=== PATIENT | female | born 1950 | race Caucasian/White ===

== ENCOUNTER 2017-12-24 09:09 | Emergency (ER) | payer MEDICARE, MEDICAID ==
[~2017-12-24] VITALS: Ht 167.6 cm; Wt 50.0 kg
[~2017-12-24 09:09] MED LIST: ASPI-611 PO; PANT20TA2 PO
[2017-12-24 09:14] VITALS: BP 163/79
== END 2017-12-24 10:21 | disposition home or self-care (01) ==
LOC: ER 09:10
DX: S06.0X0A Concussion without loss of consciousness, initial encounter (principal); Z56.0 Unemployment, unspecified; Z79.82 Long term (current) use of aspirin; Z79.899 Other long term (current) drug therapy; X58.XXXA Exposure to other specified factors, initial encounter; Y93.89 Activity, other specified; Y92.89 Other specified places as the place of occurrence of the external cause; Y99.8 Other external cause status
CPT/HCPCS: 70450; 99284

== ENCOUNTER 2021-05-02 11:38 | Emergency (ER) | payer MEDICAID, MEDICARE ==
[~2021-05-02] VITALS: Ht 167.6 cm; Wt 56.8 kg
[2021-05-02 11:41] VITALS: BP 169/65
== END 2021-05-02 14:11 | disposition home or self-care (01) ==
LOC: ER 11:38
DX: S09.90XA Unspecified injury of head, initial encounter (principal); R51.9 Headache, unspecified; R42 Dizziness and giddiness; E05.90 Thyrotoxicosis, unspecified without thyrotoxic crisis or storm; Z56.0 Unemployment, unspecified; Z79.82 Long term (current) use of aspirin; X58.XXXA Exposure to other specified factors, initial encounter; Y93.89 Activity, other specified; Y92.89 Other specified places as the place of occurrence of the external cause; Y99.8 Other external cause status
CPT/HCPCS: 70450; 99284

== ENCOUNTER 2023-10-21 06:39 | Emergency (ER) | payer MEDICARE ==
[~2023-10-21] VITALS: Ht 167.6 cm; Wt 56.7 kg
[2023-10-21 06:41] VITALS: BP 146/86; PULSE 75; RESP 18; TEMP 97.8; O2SAT 98
== END 2023-10-21 08:49 | disposition home or self-care (01) ==
LOC: ER 06:39
DX: S63.502A Unspecified sprain of left wrist, initial encounter (principal); E05.90 Thyrotoxicosis, unspecified without thyrotoxic crisis or storm; W18.31XA Fall on same level due to stepping on an object, initial encounter; Y93.89 Activity, other specified; Y92.89 Other specified places as the place of occurrence of the external cause; Y99.8 Other external cause status
CPT/HCPCS: 29125; 73090; 73110; 99284

== ENCOUNTER 2024-11-18 18:41 | Emergency (ER) | payer MEDICARE ==
[~2024-11-18] VITALS: Ht 167.6 cm; Wt 56.0 kg
[2024-11-18 18:42] VITALS: BP 158/92; PULSE 72; RESP 16; O2SAT 98
--- NOTE | 2024-11-18 20:47 | RADIOLOGY REPORT ---
CT CT HEAD INDICATION: [facility] COMPARISON: CT HEAD on DOS: 05/02/21 TECHNIQUE: CT of the head without intravenous contrast. RADIATION DOSE: CTDIvol: mGy, DLP: mGy*cm FINDINGS: There is no evidence of intracranial hemorrhage, infarct, extra-axial collection, mass effect, midli ne shift, herniation or hydrocephalus. The ventricles, sulci and cisterns are age appropriate. The gr ay-white differentiation is intact. Visualized paranasal sinuses and mastoid air cells are clear. Sof t tissues and osseous structures are unremarkable. IMPRESSION: No intracranial abnormality identified.
--- NOTE | 2024-11-18 21:02 | Physician Documentation ---
History of Present Illness General Chief Complaint: Headache Stated Complaint: HEADACHE FROM HEAD INJURY Time Seen by MD: 19:25 History of Present Illness Initial Comments 74-year-old female struck in the forehead with a Pickleball at a high rate of speed. Had no loss of consciousness but immediately began feeling nauseated without vomiting, blurry vision and headache. Prior history of the same. Medication Reconciliation Allergies: Coded Allergies: No Known Allergies (Unverified , 11/18/24) Scheduled Aspirin (Aspir 81), 1 TABLET PO DAILY Scheduled PRN Pantoprazole Sodium (Protonix), 20 MG PO DAILY PRN for ABDOMINAL PAIN Past Medical History Past Medical History: Hyperthyroidism Past Surgical History: noncontributory Alcohol Use: None Drug Use: none Lives with: Family Lives In: Home Occupation: unemployed Physical Exam Physical Exam Vital Signs: RN Vital Signs have been reviewed: Yes, Temperature: 97.2, Source: Temporal, Heart Rate: 72, Respiratory Rate: 16, BP: 158/92, Pulse Oximetry: 98, Weight: 56.000 Oxygen Flow Rate: 0 General Appearance: alert, WD/WN, moderate distress Head: normal inspection, tender (forehead) Face: normal inspection Pupils/EOM/Fundus: PERRLA Ear: auricle normal, canal normal Nose: normal inspection Oropharynx: normal inspection Respiratory: lungs clear Cardiovascular: normal peripheral pulses Gastrointestinal: normal palpation Back: normal inspection Extremities: normal range of motion Neurologic: oriented x4 Motor / Sensory: no motor deficit, no sensory deficit Psychiatric: normal mood/affect Skin: normal color, warm/dry Progress Results/Orders Results/Orders Orders - JEN PAGAN PAC Ct Head (11/18/24 ) Completed Orders - JEN PAGAN PAC Ct Head (11/18/24 ) Vital Signs 11/18/24 11/18/24 18:42 21:08 Temp 97.2 97.2 Pulse 72 Resp 16 B/P (MAP) 158/92 Pulse Ox 98 O2 Flow Rate 0 Medical Decision Making Differential Diagnosis 74-year-old female status post Pickle-ball to the forehead requiring CT imaging. CT reassuring. Likely concussion without loss of consciousness. Discharged safe and stable condition. Departure Disposition: 01 HOME / SELF CARE / HOMELESS Impression: Primary Impression: Closed head injury Qualified Codes: S09.90XA - Unspecified injury of head, initial encounter Additional Impression: Concussion without loss of consciousness Qualified Codes: S06.0X0A - Concussion without loss of consciousness, initial encounter Condition: Stable Discharge Instructions: Concussion, Adult, Sorj-aj-Fuon Additional Instructions: Your CT imaging today is reassuring. Likely you received concussive symptoms. Please abstain from contact sports until you have gone seven days without concussive symptoms such as headache, nausea, blurry vision and/or headaches. Make follow up appointment with the primary care physician and return to the emergency department as needed. Please continue to play Pickleball when you feeling better. Referrals: NO PRIMARY CARE PROVIDER (PCP) Education Educated: Patient Educated regarding: diagnosis Signature Scribe Signature: . Attestation: . JEN PAGAN PAC November 18, 2024 21:02
[2024-11-18 21:08] VITALS: TEMP 97.2
== END 2024-11-18 21:11 | disposition home or self-care (01) ==
LOC: ER 18:42
DX: S06.0X0A Concussion without loss of consciousness, initial encounter (principal); S09.8XXA Other specified injuries of head, initial encounter; E05.90 Thyrotoxicosis, unspecified without thyrotoxic crisis or storm; Z79.82 Long term (current) use of aspirin; Z56.0 Unemployment, unspecified; W21.09XA Struck by other hit or thrown ball, initial encounter; Y93.89 Activity, other specified; Y92.89 Other specified places as the place of occurrence of the external cause; Y99.8 Other external cause status
CPT/HCPCS: 70450; 99284